=== PATIENT | male | born 1990 | race Hispanic/Latino ===

== ENCOUNTER 2016-09-15 17:20 | Emergency (ER) | payer SELFPAY ==
[2016-09-15 18:03] LABS: Basophils % (Auto) 0.8 % (0.0-1.8); Eosinophils % (Auto) 1.5 % (0.0-4.3); Hematocrit 44.2 % (35.5-45.6); Hemoglobin 15.7 gm/dl (11.8-15.2); Mean Corpuscular HGB Conc 36 % (32-34); Mean Corpuscular Hemoglobin 30 pg (28-32); Mean Corpuscular Volume 83 fl (84-94); Platelet Count 175 K/mm3 (140-440); Red Blood Count 5.31 M/mm3 (3.65-5.03); Red Cell Distribution Width 13.2 % (13.2-15.2); White Blood Count 8.4 K/mm3 (4.5-11.0)
[2016-09-15 18:05] LABS: Anion Gap 18 mmol/L; Blood Urea Nitrogen 14 mg/dL (9-20); Calcium 9.4 mg/dL (8.4-10.2); Carbon Dioxide 24 mmol/L (22-30); Glucose 88 mg/dL (75-100); Potassium 4.1 mmol/L (3.6-5.0); Sodium 140 mmol/L (137-145)
[2016-09-15 18:32] LABS: Urine Drugs of Abuse Note Disclamer
[2016-09-15 18:45] LABS: Bilirubin,Urine NEG (Negative); Blood,Urine NEG (Negative); Ketones,Urine NEG (Negative); Leukocyte Esterase,Urine NEG (Negative); Mucus,Urine 1+ /HPF; Nitrite,Urine NEG (Negative); Urobilinogen,Urine < 2.0 mg/dL (<2.0)
--- NOTE | 2016-09-15 20:38 | Emergency Department Report ---
HPI - General Chief Complaint: Psych Time Seen by Provider: 09/15/16 19:03 - HPI HPI: The patient is a 26-year-old male presents for evaluation of mental health. The patient reports constant and severe sadness, constant for the past one week , exacerbated secondary to stress at work and working long hours. The patient denies fever, headache, unexplained weight loss or weight gain, heat or cold intolerance, skin, hair, or nail changes, neuro deficits, suicidal ideations, homicidal ideations, or auditory or visual hallucinations. 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" - Surgical History Past Surgical History?: No - Social History Smoking Status: Never Smoker Substance Use Type: Alcohol - Medications Home Medications: Home Medications Medication Instructions Recorded Confirmed Last Taken Type Acetaminophen/Codeine [Tylenol #3] 1 tab PO Q6H PRN #15 tab 04/09/16 Unknown Rx ED Review of Systems ROS: Stated complaint: MH/EVAL/ SUICIDAL THOUGHTS Other details as noted in HPI Constitutional: denies: fever ENT: denies: throat or neck pain Respiratory: denies: cough, shortness of breath Cardiovascular: denies: chest pain Endocrine: denies unexplained weight loss or gain Gastrointestinal: denies: abdominal pain, nausea Genitourinary: denies: dysuria Musculoskeletal: denies: leg swelling Skin: denies: rash Neurological: denies: headache Hematological/Lymphatic: denies: easy bleeding or easy bruising Psych: reports sadness Physical Exam - Physical Exam Physical Exam: General: well-nourished, well-developed, no acute distress Head: Normocephalic, atraumatic Eyes: normal sclera ENT: Mucous membranes are pink and moist Neck: trachea midline, neck supple, No neck stiffness, no cervical adenopathy Respiratory: Breath sounds equal bilaterally, no wheezing, rales, or rhonchi Cardio: S1 and S2 present, no murmurs, rubs, gallops, capillary refill is brisk Abdomen: Normoactive bowel sounds, soft abdomen, no rigidity, no guarding or rebound tenderness Musc: No pitting edema Skin: No rash Neuro: no facial drooping, normal speech Psych: Normal affect, depressed mood, appropriate insight, no hallucinations ED Medical Decision Making - Lab Data Result diagrams: 09/15/16 17:34 09/15/16 17:34 - Medical Decision Making The patient was seen and examined by myself. The patient is placed on a residential monitor and continuous pulse ox. On initial evaluation, the patient was found to be in no distress. Labs are obtained. Lab results are grossly unremarkable. The patient is medically clear. As the patient is negative for active feelings of suicide or self-harm he is stable for discharge. Critical care attestation.: If time is entered above; I have spent that time in minutes in the direct care of this critically ill patient, excluding procedure time. ED Disposition Clinical Impression: Depressed Qualifiers: Depression Type: major depressive disorder Major depression recurrence: single episode Active/Remission status: currently active Major depression episode severity: mild Qualified Code(s): F32.0 - Major depressive disorder, single episode, mild Disposition: DISCHARGED TO HOME OR SELFCARE Is pt being admited?: No Does the pt Need Aspirin: No Condition: Stable Instructions: Suicide Prevention for Adults (ED), Depression (ED) Referrals: [facility] [Outside] - 3-5 Days ANURAG PICHARDO MD [Referring] - 3-5 Days Time of Disposition: 20:38
== END 2016-09-15 22:47 | disposition home or self-care (01) ==
LOC: EEVIPCON 17:20 → ED 17:20
DX: F32.0 Major depressive disorder, single episode, mild (principal)
CPT/HCPCS: 36415; 80048; 80307; 81001; 85025; 99284; G0480; 80320

== ENCOUNTER 2018-06-28 11:07 | Emergency (ER) | payer OTHER ==
[2018-06-28] MEDS ORDERED: TYLENOL PO ONE (11:21)
--- NOTE | 2018-06-28 11:21 | Emergency Department Report ---
Blank Doc - Documentation Documentation: This is a 28-year-old male that present with URI symptoms. This initial assessment/diagnostic orders/clinical plan/treatment(s) is/are subject to change based on patient's health status, clinical progression and re- assessment by fellow clinical providers in the ED. Further treatment and workup at subsequent clinical providers discretion. Patient/guardians urged not to elope from the ED as their condition may be serious if not clinically assessed and managed. Initial orders include: 1- Patient sent to [facility] for further evaluation and treatment 2- Tylenol 3- CXR
[2018-06-28 11:23] VITALS: BP 141/71
--- NOTE | 2018-06-28 11:53 | XRay Report ---
ROUTINE CHEST, TWO VIEWS: HISTORY: Cough. The trachea, heart, mediastinal contour, lung leone and bony thorax are unremarkable. IMPRESSION: Unremarkable chest x-ray.
--- NOTE | 2018-06-28 13:57 | Emergency Department Report ---
Minor Respiratory - HPI Chief Complaint: Upper Respiratory Infection Stated Complaint: FLU LIKE/VIRTIGO Time Seen by Provider: 06/28/18 11:20 Duration: 3 Days Severity: moderate Minor Respiratory: Yes Rhinorrhea, Yes Able to Tolerate Fluids, Yes Cough, Yes Sick Contacts (son), No Sore Throat, No Ear Pain, No Hemoptysis, No Chest Pain, No Shortness of Breath, No Fever ED Review of Systems ROS: Stated complaint: FLU LIKE/VIRTIGO Other details as noted in HPI Comment: All other systems reviewed and negative ED Past Medical Hx - Past Medical History Previous Medical History?: No Hx Arthritis: Yes (arthritis- knee and wrist) 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" - Surgical History Past Surgical History?: No - Social History Smoking Status: Never Smoker Substance Use Type: None - Medications Home Medications: Home Medications Medication Instructions Recorded Confirmed Last Taken Type Acetaminophen/Codeine [Tylenol #3] 1 tab PO Q6H PRN #15 tab 04/09/16 Unknown Rx Ciprofloxacin HCl [Ciprofloxacin 500 mg PO BID 3 Days #6 tablet 04/05/18 Unknown Rx TAB] Loperamide [Imodium] 4 mg PO QID 2 Days #16 capsule 04/05/18 Unknown Rx ALBUTEROL Inhaler (OR & NICU) 2 puff IH QID PRN #1 inhalation 06/28/18 Unknown Rx [ProAir HFA Inhaler] predniSONE [Deltasone] 20 mg PO QDAY #5 tab 06/28/18 Unknown Rx Minor Respiratory Exam - Exam General: Vital signs noted. No distress. Alert and acting appropriately. HEENT: Yes Moist Mucous Membranes, No Pharyngeal Erythema, No Pharyngeal Exudates, No Rhinorrhea, No Conjuctival Injection, No Frontal Tenderness, No Maxillary Tenderness Ear: Neither TM Bulge, Neither TM Erythema, Neither EAC Pain, Neither EAC Discharge Neck: Yes Supple, No Adenopathy Lungs: Yes Good Air Exchange, No Wheezes, No Ronchi, No Stridor, No Cough, No Labored Respirations, No Retractions, No Use of Accessory Muscles, No Other Abno rmal Lung Sounds Heart: Yes Regular, No Murmur Abdomen: Yes Normal Bowel Sounds, No Tenderness, No Peritoneal Signs Skin: No Rash, No Edema Neurologic: Alert and oriented, no deficits. Musculoskeletal: Unremarkable. ED Course Vital Signs 06/28/18 06/28/18 06/28/18 11:21 11:32 13:16 Temperature 99.8 F H 98.4 F Pulse Rate 98 H Respiratory 18 18 Rate Blood Pressure 141/71 O2 Sat by Pulse 97 Oximetry ED Medical Decision Making - Radiology Data CXR WNL Critical care attestation.: If time is entered above; I have spent that time in minutes in the direct care of this critically ill patient, excluding procedure time. ED Disposition Clinical Impression: URI (upper respiratory infection) Qualifiers: URI type: unspecified viral URI Qualified Code(s): J06.9 - Acute upper respiratory infection, unspecified Disposition: DC-01 TO HOME OR SELFCARE Is pt being admited?: No Does the pt Need Aspirin: No Condition: Stable Instructions: Upper Respiratory Infection (ED) Referrals: POLLY SAMAYOA MD [Primary Care Provider] - 3-5 Days Time of Disposition: 13:57
== END 2018-06-28 14:07 | disposition home or self-care (01) ==
LOC: ED 11:07
DX: J06.9 Acute upper respiratory infection, unspecified (principal); M25.569 Pain in unspecified knee; M25.539 Pain in unspecified wrist
CPT/HCPCS: 71046

== ENCOUNTER 2020-01-23 07:41 | Emergency (ER) | payer SELFPAY ==
[2020-01-23 08:00] VITALS: BP 132/78
--- NOTE | 2020-01-23 10:43 | Emergency Department Report ---
- General Chief Complaint: Upper Respiratory Infection Stated Complaint: SINUS/EAR PAIN Time Seen by Provider: 01/23/20 10:10 Source: patient Mode of arrival: Ambulatory Limitations: No Limitations - History of Present Illness Initial Comments: Patient is a 29-year-old male presents emergency room complaints of sinus pressure that began 3 weeks ago. He states that he also has pain in his right ear. He states he has been having rhinorrhea, congestion, headache. He denies any fever, nausea, vomiting, diarrhea, cough, shortness of breath, ear drainage, hearing changes. He denies any sick contacts. He denies any recent travel. He states that he has used pyaq-irj-fkgairp treatments such as nose spray, [place] pot, etc. without relief. He denies any past medical history. No allergies to medications. - Related Data Previous Rx's Medication Instructions Recorded Last Taken Type Acetaminophen/Codeine [Tylenol #3] 1 tab PO Q6H PRN #15 tab 04/09/16 Unknown Rx Ciprofloxacin HCl [Ciprofloxacin 500 mg PO BID 3 Days #6 tablet 04/05/18 Unknown Rx TAB] Albuterol Mdi (or & Nicu Only) 2 puff IH QID PRN #1 inhalation 06/28/18 Unknown Rx [ProAir HFA Inhaler] predniSONE [Deltasone] 20 mg PO QDAY #5 tab 06/28/18 Unknown Rx Ciprofloxacin HCl [Ciprofloxacin 500 mg PO Q12HR #10 tab 07/08/19 Unknown Rx TAB] Loperamide [Imodium] 4 mg PO QID 2 Days #16 capsule 07/08/19 Unknown Rx Ondansetron [Zofran Odt] 4 mg PO Q8HR #12 tab.rapdis 07/08/19 Unknown Rx Amoxicillin/Potassium Clav 1 each PO BID 10 Days #20 tablet 01/23/20 Unknown Rx [Augmentin 875-125 Tablet] Fluticasone [Flonase] 1 spray NS QDAY #1 bottle 01/23/20 Unknown Rx guaiFENesin ER [Mucinex ER] 600 mg PO BID #14 tablet.er 01/23/20 Unknown Rx Allergies Allergy/AdvReac Type Severity Reaction Status Date / Time No Known Allergies Allergy Verified 04/09/16 12:31 ED Review of Systems ROS: Stated complaint: SINUS/EAR PAIN Other details as noted in HPI Comment: All other systems reviewed and negative ED Past Medical Hx - Past Medical History Previous Medical History?: Yes Hx Arthritis: Yes (arthritis- knee and wrist) 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" - Social History Smoking Status: Never Smoker Substance Use Type: None - Medications Home Medications: Home Medications Medication Instructions Recorded Confirmed Last Taken Type Acetaminophen/Codeine [Tylenol #3] 1 tab PO Q6H PRN #15 tab 04/09/16 Unknown Rx Ciprofloxacin HCl [Ciprofloxacin 500 mg PO BID 3 Days #6 tablet 04/05/18 Unknown Rx TAB] Albuterol Mdi (or & Nicu Only) 2 puff IH QID PRN #1 inhalation 06/28/18 Unknown Rx [ProAir HFA Inhaler] predniSONE [Deltasone] 20 mg PO QDAY #5 tab 06/28/18 Unknown Rx Ciprofloxacin HCl [Ciprofloxacin 500 mg PO Q12HR #10 tab 07/08/19 Unknown Rx TAB] Loperamide [Imodium] 4 mg PO QID 2 Days #16 capsule 07/08/19 Unknown Rx Ondansetron [Zofran Odt] 4 mg PO Q8HR #12 tab.rapdis 07/08/19 Unknown Rx Amoxicillin/Potassium Clav 1 each PO BID 10 Days #20 tablet 01/23/20 Unknown Rx [Augmentin 875-125 Tablet] Fluticasone [Flonase] 1 spray NS QDAY #1 bottle 01/23/20 Unknown Rx guaiFENesin ER [Mucinex ER] 600 mg PO BID #14 tablet.er 01/23/20 Unknown Rx ED Physical Exam - General Limitations: No Limitations General appearance: alert, in no apparent distress - Head Head exam: Present: atraumatic, normocephalic - Eye Eye exam: Present: normal appearance - ENT ENT exam: Present: normal orophraynx, mucous membranes moist, TM's normal bilaterally, normal external ear exam, other (nasal turbinates are erythematous and edematous with mucus drainage, bilateral sinus ttp frontal and maxillary) - Neck Neck exam: Present: full ROM. Absent: meningismus - Respiratory Respiratory exam: Present: normal lung sounds bilaterally. Absent: respiratory distress, wheezes, rales, rhonchi, stridor, chest wall tenderness, accessory muscle use, decreased breath sounds, prolonged expiratory - Cardiovascular Cardiovascular Exam: Present: regular rate, normal rhythm, normal heart sounds. Absent: systolic murmur, diastolic murmur, rubs, gallop - Neurological Exam Neurological exam: Present: alert, oriented X3 - Psychiatric Psychiatric exam: Present: normal affect, normal mood - Skin Skin exam: Present: warm, dry, intact ED Course Vital Signs 01/23/20 07:58 Temperature 98.4 F Pulse Rate 67 Respiratory 18 Rate Blood Pressure 132/78 O2 Sat by Pulse 95 Oximetry ED Medical Decision Making - Medical Decision Making Patient is a 29-year-old male presents emergency room complaints of sinus pressure that began 3 weeks ago. He states that he also has pain in his right ear. He states he has been having rhinorrhea, congestion, headache. He denies any fever, nausea, vomiting, diarrhea, cough, shortness of breath, ear drainage, hearing changes. He denies any sick contacts. He denies any recent travel. He states that he has used [id number]-vkdrxnv treatments such as nose spray, [place] pot, etc. without relief. He denies any past medical history. No allergies to medications. vitals are stable. on exam: nasal turbinates are erythematous and edematous with mucus drainage, bilateral sinus ttp frontal and maxillary. Examination appears consistent with sinusitis. Patient symptoms have been ongoing longer than 10 days, patient is a candidate for antibiotic therapy. Patient given prescription for Augmentin, Flonase, Mucinex. Advised patient Please use medication as prescribed. Increase your water intake. Follow-up with your primary care doctor. Return to emergency room for any new or worsening symptoms. - Differential Diagnosis sinusitis, URI, viral syndrome, allergies, otitis externa, otitis media Critical care attestation.: If time is entered above; I have spent that time in minutes in the direct care of this critically ill patient, excluding procedure time. ED Disposition Clinical Impression: Acute sinusitis Qualifiers: Sinusitis location: unspecified location Recurrence: non-recurrent Qualified Code(s): J01.90 - Acute sinusitis, unspecified Disposition: - TO HOME OR SELFCARE Is pt being admited?: No Does the pt Need Aspirin: No Condition: Stable Instructions: Sinusitis (ED) Additional Instructions: Please use medication as prescribed. Increase your water intake. Follow-up with your primary care doctor. Return to emergency room for any new or worsening symptoms. Prescriptions: Amoxicillin/Potassium Clav [Augmentin 875-125 Tablet] 1 each PO BID 10 Days #20 tablet Fluticasone [Flonase] 1 spray NS QDAY #1 bottle guaiFENesin ER [Mucinex ER] 600 mg PO BID #14 tablet.er Referrals: PRIMARY CAREMD [Primary Care Provider] - 2-3 Days CHI SUMMERS MD [Staff Physician] - 2-3 Days [facility] [Provider Group] - 2-3 Days [facility], [LAB/CONTRACT] - 2-3 Days Time of Disposition: 10:41 Print Language: GUYANESE
== END 2020-01-23 10:56 | disposition home or self-care (01) ==
LOC: ED 07:41
DX: J01.90 Acute sinusitis, unspecified (principal); M19.90 Unspecified osteoarthritis, unspecified site; Z79.899 Other long term (current) drug therapy
CPT/HCPCS: 99281

== ENCOUNTER 2020-04-05 08:47 | Emergency (ER) | payer SELFPAY ==
[2020-04-05 09:23] LABS: Hematocrit 42.1 % (35.5-45.6); Hemoglobin 14.9 gm/dl (11.8-15.2); Mean Corpuscular HGB Conc 35 % (32-34); Mean Corpuscular Volume 82 fl (84-94); Platelet Count 226 K/mm3 (140-440); Red Blood Count 5.12 M/mm3 (3.65-5.03); Red Cell Distribution Width 14.9 % (13.2-15.2)
[2020-04-05 09:46] LABS: Alanine Aminotransferase 38 units/L (7-56); Albumin 4.3 g/dL (3.9-5); BUN/Creatinine Ratio 13; Blood Urea Nitrogen 14 mg/dL (9-20); Calcium 9.6 mg/dL (8.4-10.2); Hemolysis Index 8
[2020-04-05 09:47] LABS: Bilirubin,Urine NEG (Negative); Blood,Urine NEG (Negative); Color,Urine Yellow (Yellow); Mucus,Urine FEW /HPF; Protein,Urine <15 mg/dL mg/dL (Negative); Urobilinogen,Urine < 2.0 mg/dL (<2.0)
--- NOTE | 2020-04-05 09:56 | Emergency Department Report ---
ED Abdominal Pain HPI - General Chief Complaint: Abdominal Pain Stated Complaint: POSSIBLE UTI/KIDNEY INFECTION PUI?: No Time Seen by Provider: 04/05/20 09:50 Source: patient Mode of arrival: Ambulatory Limitations: No Limitations - History of Present Illness Initial Comments: Mr. Arnett is a 30-year-old male that comes to the emergency room complaining of frequent urination, chills and left flank pain for 1 day. He stated got especially worse last night. He also endorses nausea. He denies vomiting. He denies any diarrhea or constipation. He denies any stools that are bloody. Patient states that no one in his home is ill. He has had no known exposure to COVID-19. Patient denies any dysuria or seeing blood in his urine. On triage patient's heart rate was around 107. He was not hypotensive. He was afebrile. On exam he initially looked ill appearing. He denies taking any medications at home on a daily basis. Patient denies any cigarettes alcohol or drugs. MD Complaint: abdominal pain -: Sudden, days(s) Location: L flank Severity: moderate Quality: cramping Consistency: constant Improves With: nothing Worsens With: nothing Associated Symptoms: chills - Related Data Previous Rx's Medication Instructions Recorded Last Taken Type Ciprofloxacin HCl [Ciprofloxacin 500 mg PO Q12HR #20 tab 04/05/20 Unknown Rx TAB] metroNIDAZOLE [Flagyl] 500 mg PO Q12HR #20 tab 04/05/20 Unknown Rx Allergies Allergy/AdvReac Type Severity Reaction Status Date / Time No Known Allergies Allergy Verified 04/05/20 08:48 ED Review of Systems ROS: Stated complaint: POSSIBLE UTI/KIDNEY INFECTION Other details as noted in HPI Comment: All other systems reviewed and negative ED Past Medical Hx - Past Medical History Previous Medical History?: Yes Hx Arthritis: Yes (arthritis- knee and wrist) 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 - Surgical History Past Surgical History?: No - Family History Family history: no significant - Social History Smoking Status: Never Smoker Substance Use Type: None - Medications Home Medications: Home Medications Medication Instructions Recorded Confirmed Last Taken Type Ciprofloxacin HCl [Ciprofloxacin 500 mg PO Q12HR #20 tab 04/05/20 Unknown Rx TAB] metroNIDAZOLE [Flagyl] 500 mg PO Q12HR #20 tab 04/05/20 Unknown Rx ED Physical Exam - General Limitations: No Limitations General appearance: alert - Head Head exam: Present: atraumatic, normocephalic - Eye Eye exam: Present: normal appearance - ENT ENT exam: Present: mucous membranes moist - Neck Neck exam: Present: normal inspection - Respiratory Respiratory exam: Present: normal lung sounds bilaterally. Absent: respiratory distress - Cardiovascular Cardiovascular Exam: Present: regular rate, normal rhythm. Absent: systolic murmur, diastolic murmur, rubs, gallop - GI/Abdominal GI/Abdominal exam: Present: soft, normal bowel sounds, other (Exam limited by body habitus). Absent: distended, tenderness, guarding, rebound, rigid, diminished bowel sounds, hyperactive bowel sounds, hypoactive bowel sounds, organomegaly, mass, bruit, pulsatile mass, hernia - Rectal Rectal exam: Present: deferred - Extremities Exam Extremities exam: Present: normal inspection, full ROM - Back Exam Back exam: Present: normal inspection, full ROM. Absent: CVA tenderness (R), CVA tenderness (L) - Neurological Exam Neurological exam: Present: alert, oriented X3 - Psychiatric Psychiatric exam: Present: normal affect, normal mood - Skin Skin exam: Present: warm, dry, intact, normal color. Absent: rash ED Course Vital Signs 04/05/20 04/05/20 04/05/20 08:55 10:22 11:15 Temperature 98.6 F 99.1 F Pulse Rate 107 H 79 Respiratory 20 22 19 Rate Blood Pressure 138/63 Blood Pressure 118/52 [Right] O2 Sat by Pulse 96 98 Oximetry 04/05/20 13:29 Temperature Pulse Rate 74 Respiratory 16 Rate Blood Pressure Blood Pressure 121/61 [Right] O2 Sat by Pulse 98 Oximetry ED Medical Decision Making - Lab Data Result diagrams: 04/05/20 09:13 04/05/20 09:13 - Radiology Data Radiology results: report reviewed, image reviewed CT per radiology report evidence of colitis: No kidney stone - Medical Decision Making Lab Results 04/05/20 04/05/20 04/05/20 Range/Units 09:13 09:13 Unknown WBC 12.8 H (4.5-11.0) K/mm3 RBC 5.12 H (3.65-5.03) M/mm3 Hgb 14.9 (11.8-15.2) gm/dl Hct 42.1 (35.5-45.6) % MCV 82 L (84-94) fl MCH 29 (28-32) pg MCHC 35 H (32-34) % RDW 14.9 (13.2-15.2) % Plt Count 226 (140-440) K/mm3 Sodium 133 L (137-145) mmol/L Potassium 4.4 (3.6-5.0) mmol/L Chloride 98.6 (98-107) mmol/L Carbon Dioxide 25 (22-30) mmol/L Anion Gap 14 mmol/L BUN 14 (9-20) mg/dL Creatinine 1.1 (0.8-1.3) mg/dL Estimated GFR > 60 ml/min BUN/Creatinine Ratio 13 % Glucose 112 H (75-100) mg/dL Calcium 9.6 (8.4-10.2) mg/dL Total Bilirubin 1.00 (0.1-1.2) mg/dL AST 20 (5-40) units/L ALT 38 (7-56) units/L Alkaline Phosphatase 85 (35-129) units/L Total Protein 7.9 (6.3-8.2) g/dL Albumin 4.3 (3.9-5) g/dL Albumin/Globulin Ratio 1.2 % Lipase 17 (13-60) units/L Urine Color Yellow (Yellow) Urine Turbidity Clear (Clear) Urine pH 6.0 (5.0-7.0) Ur Specific [place] 1.026 (1.003-1.030) Urine Protein <15 mg/dl (Negative) mg/dL Urine Glucose (UA) Neg (Negative) mg/dL Urine Ketones Neg (Negative) mg/dL Urine Blood Neg (Negative) Urine Nitrite Neg (Negative) Urine Bilirubin Neg (Negative) Urine Urobilinogen < 2.0 (<2.0) mg/dL Ur Leukocyte Esterase Neg (Negative) Urine WBC (Auto) 1.0 (0.0-6.0) /HPF Urine RBC (Auto) 1.0 (0.0-6.0) /HPF Urine Mucus Few /HPF Vital Signs 04/05/20 04/05/20 04/05/20 08:55 10:22 11:15 Temperature 98.6 F 99.1 F Pulse Rate 107 H 79 Respiratory 20 22 19 Rate Blood Pressure 138/63 Blood Pressure 118/52 [Right] O2 Sat by Pulse 96 98 Oximetry Labs were noted. UA noted. CT scan abdomen noted. No kidney stones. However, CT scan suggestive of colitis. Patient denies any history of colitis although I notice in reviewing the EMR he is on several rounds of antibiotics such as clindamycin. Patient medicated with a liter of normal saline, IV Flagyl and azithromycin. On discharge patient's vital signs are normal he has no further tachycardia. He is ambulatory, nonill appearing and taking p.o. He reports feeling much better after receiving the IV fluids. Patient being discharged home with discharge plan of care including medications, follow-up, diet and activity. He verbalizes understanding of discharge plan of care. - Differential Diagnosis Rule out kidney stone, UTI, colitis, appendicitis Critical care attestation.: If time is entered above; I have spent that time in minutes in the direct care of this critically ill patient, excluding procedure time. ED Disposition Clinical Impression: Colitis Disposition: DC-01 TO HOME OR SELFCARE Is pt being admited?: No Does the pt Need Aspirin: No Condition: Stable Instructions: Food Choices to Help Relieve Diarrhea, Adult Additional Instructions: Medications as ordered today. Stay well-hydrated with water. Motrin or Tylenol for pain. You will need to follow-up with GI or primary care doctor. Have given you referrals. See below. Your diet should be bland today bananas, rice, applesauce or toast. Then over the next couple days slowly reintroduce food. Good handwashing in your home for you do not want this to be spread to any fa drew members. Avoid alcohol. Activity as tolerated Prescriptions: Ciprofloxacin HCl [Ciprofloxacin TAB] 500 mg PO Q12HR #20 tab metroNIDAZOLE [Flagyl] 500 mg PO Q12HR #20 tab Referrals: MURALI GRUBER MD [Primary Care Provider] - 3-5 Days CHI SUMMERS MD [Staff Physician] - 3-5 Days KING GARCIA MD [Staff Physician] - 3-5 Days Forms: Work/School Release Form(ED) Time of Disposition: 13:09
[2020-04-05] MEDS ORDERED: KETOROLAC 30 MG/1 ML INJ IV ONE (09:57)
[2020-04-05] MEDS ORDERED: ONDANSETRON 4 MG/2 ML INJ IV ONE (09:57)
[2020-04-05] MEDS ORDERED: SODIUM CHLORIDE 0.9% 1000 ML 1,000 ML IV ONE (09:58)
--- NOTE | 2020-04-05 11:57 | Cat Scan Report ---
CT ABDOMEN AND PELVIS WITHOUT CONTRAST INDICATION / CLINICAL INFORMATION: flank pain co for stone. TECHNIQUE: Axial CT images were obtained through the abdomen and pelvis without IV contrast. All CT scans at [facility] location are performed using CT dose reduction for ALARA by means of automated exposure control. COMPARISON: None available. FINDINGS: LOWER CHEST: No significant abnormality. LIVER: No significant abnormality. GALLBLADDER: No significant abnormality. BILE DUCTS: No significant abnormality. PANCREAS: No significant abnormality. SPLEEN: No significant abnormality. ADRENALS: No significant abnormality. RIGHT KIDNEY / URETER: No significant abnormality. LEFT KIDNEY / URETER: No significant abnormality. STOMACH / SMALL BOWEL: No significant abnormality. No mechanical bowel obstruction. COLON: Mild wall edema noted of the ileocecal junction.with minimal pericolonic fat stranding. APPENDIX: No significant abnormality. PERITONEUM: No free fluid. No free air. No fluid collection. LYMPH NODES: Numerous scattered reactive appearing lymph nodes are noted in the right lower quadrant of the abdomen in the area of the cecum and appendix. AORTA / ARTERIES: No significant abnormality. IVC / VEINS: No significant abnormality. URINARY BLADDER: No significant abnormality. REPRODUCTIVE ORGANS: No significant abnormality. ADDITIONAL FINDINGS: None. SKELETAL SYSTEM: No significant abnormality. IMPRESSION: 1. Mild wall edema noted at the ileocecal junction with minimal pericolonic fat stranding and numerou s scattered reactive appearing lymph nodes in the right lower quadrant. This likely represents mesent colton adenitis versus less likely a mild colitis. 2. The appendix is normal. 3. No calcified stones or hydronephrosis. Signer Name: Jonas Michel MD Signed: 04/05/2020 11:52 AM Workstation Name: [email or web address]
[2020-04-05] MEDS ORDERED: metroNIDAZOLE/NS 500 MG/100 ML 500 MG/100 ML BAG IV ONE (11:59)
[2020-04-05] MEDS ORDERED: AZITHROMYCIN 500 MG in SODIUM CHLORIDE 0.9% 250ML 250 ML IV ONE (12:30)
[2020-04-05 13:30] VITALS: BP 121/61
== END 2020-04-05 13:38 | disposition home or self-care (01) ==
LOC: ED 08:47
DX: K52.9 Noninfective gastroenteritis and colitis, unspecified (principal); M19.90 Unspecified osteoarthritis, unspecified site; Z79.899 Other long term (current) drug therapy
CPT/HCPCS: 36415; 74176; 80053; 81001; 83690; 85027; 87086; 96361; 96365; 96368; 96375; 99284; J0456; J1885; J2405; J7030; J7050